=== PATIENT | female | born 1935 | race Caucasian/White ===

== ENCOUNTER 2020-01-20 16:00 | Outpatient (CLI) | payer MEDICARE | END 2020-01-20 16:01 | disposition EMS.NT | LOC: EMS 16:00 | PROVIDERS: ATTEND Surgery | DX: R55 Syncope and collapse (principal) ==

== ENCOUNTER 2023-10-31 12:03 | Outpatient (CLI) | payer MEDICARE | END 2023-10-31 12:04 | disposition critical access hospital (66) | LOC: EMS 12:03 | DX: R53.1 Weakness (principal); R42 Dizziness and giddiness; R11.0 Nausea | CPT/HCPCS: A0425; A0427 ==

== ENCOUNTER 2023-10-31 12:17 | Emergency (ER) | payer MEDICARE ==
[2023-10-31] MEDS ORDERED: fentaNYL 100 MCG/2 ML VIAL IVP PRN (12:39)
[2023-10-31] MEDS: SODIUM CHLORIDE 0.9% 1,000 ML IV STA (12:52)
[2023-10-31] MEDS: ONDANSETRON 4 MG/2 ML VIAL IVP STA (12:53)
[2023-10-31 12:59] LABS: VBG HCO3 24.7 mmol/L (23-28); VBG PCO2 39.5 mmHg (41-51); VBG PH 7.414 (7.31-7.41); VBG PO2 37.1 mmHg (25-47); VBG TOTAL CO2 25.9 mmol/L (24-29)
[2023-10-31 13:00] LABS: VBG BASE EXCESS 0.2 mmol/L (-2 - +2); VBG OXYGEN SATURATION 74.4 % (60-80)
[2023-10-31 13:03] LABS: BASOPHILS % (AUTO) 0.2 %; EOSINOPHILS # (AUTO) 0.1 10^3/uL (0.0-0.7); HCT - HEMATOCRIT 37.9 % (37.0-47.0); HGB - HEMOGLOBIN 12.8 g/dL (12.0-16.0); LYMPHOCYTES # (AUTO) 1.4 10^3/uL (1.5-3.5); MEAN CORPUSCULAR HEMOGLOBIN 30.6 pg (27.0-31.0); MEAN CORPUSCULAR HGB CONC 33.8 g/dL (32.0-36.0); MEAN CORPUSCULAR VOLUME 90.7 fL (81.0-99.0); MEAN PLATELET VOLUME 10.7 fL (7.9-10.8); MONOCYTES # (AUTO) 0.2 10^3/uL (0.0-1.0); MONOCYTES % (AUTO) 3.9 %; NEUTROPHILS # (AUTO) 4.4 10^3/uL (1.5-6.6); NEUTROPHILS % (AUTO) 71.6 %; PLT - PLATELET COUNT 175 10^3/uL (130-450); RED BLOOD COUNT 4.18 10^6/uL (4.20-5.40); RED CELL DISTRIBUTION WIDTH 13.2 % (12.0-15.0); WHITE BLOOD COUNT 6.1 x10^3/uL (4.8-10.8)
[2023-10-31 13:09] LABS: PT - PROTHROMBIN TIME 11.2 secs (9.9-12.6)
[2023-10-31 13:18] LABS: ALBUMIN 4.2 g/dL (3.2-5.5); ALBUMIN/GLOBULIN RATIO 1.6 (1.0-2.2); ALKALINE PHOSPHATASE 56 IU/L (42-121); ALT ALANINE AMINOTRANSFERASE 13 IU/L (10-60); AST ASPARTATE AMINOTRANSFERASE 17 IU/L (10-42); BILIRUBIN,TOTAL 0.5 mg/dL (0.2-1.0); BUN - BLOOD UREA NITROGEN 25 mg/dL (6-20); CALCIUM 9.7 mg/dL (8.5-10.3); CARBON DIOXIDE - CO2 25 mmol/L (21-32); CHLORIDE 101 mmol/L (101-111); CK- CREATINE KINASE 57 IU/L (30-223); CREATININE 0.9 mg/dL (0.6-1.3); ETOH - ETHANOL < 10.0 mg/dL; GFR - MDRD 59 (>89); GLUCOSE 179 mg/dL (74-104); LIPASE 25 U/L (11-82); MAGNESIUM 1.8 mg/dL (1.7-2.3); POTASSIUM 3.7 mmol/L (3.5-4.5); SODIUM 135 mmol/L (135-145); TOTAL PROTEIN 6.8 g/dL (6.4-8.9)
[2023-10-31] MEDS ORDERED: IOVERSOL 320 100 ML VIAL IVP ONE (13:40)
[2023-10-31 13:51] LABS: B. PARAPERTUSSIS- RESP PCR PAN NOT DETECTED; B. PERTUSSIS- RESP PCR PANEL NOT DETECTED; C. PNEUMONIAE- RESP PCR PANEL NOT DETECTED; CORONAVIRUS 229E-RESP PCR NOT DETECTED; CORONAVIRUS HKU1-RESP PCR NOT DETECTED; CORONAVIRUS NL63-RESP PCR NOT DETECTED; CORONAVIRUS OC43-RESP PCR NOT DETECTED; HUMAN METAPNEUMOVIRUS NOT DETECTED; INFLUENZA A- RESP PCR PANEL NOT DETECTED; INFLUENZA B - RESP PCR PANEL NOT DETECTED; M. PNEUMONIAE- RESP PCR PANEL NOT DETECTED; PARAINFLUENZA VIRUS 1 NOT DETECTED; PARAINFLUENZA VIRUS 2 NOT DETECTED; PARAINFLUENZA VIRUS 3 NOT DETECTED; PARAINFLUENZA VIRUS 4 NOT DETECTED; RHINOVIRUS/ENTEROVIRUS NOT DETECTED; RSV- RESP PCR PANEL NOT DETECTED; SARS-CoV-2 -RESP PCR PANEL NOT DETECTED
[2023-10-31 14:40] LABS: BILIRUBIN,URINE NEGATIVE (NEGATIVE); GLUCOSE, URINE (UA) NEGATIVE (NEGATIVE); KETONES,URINE (UA) NEGATIVE (NEGATIVE); LEUKOCYTE ESTERASE, URINE NEGATIVE (NEGATIVE); NITRITE,URINE POSITIVE (NEGATIVE); OCCULT BLOOD,URINE NEGATIVE (NEGATIVE); PROTEIN,URINE NEGATIVE (NEGATIVE); UROBILINOGEN,URINE 0.2 (NORMAL) E.U./dL (NORMAL)
[2023-10-31 14:43] LABS: CLARITY,URINE HAZY (CLEAR)
[2023-10-31 14:51] LABS: AMPHETAMINE SCREEN,URINE NEGATIVE (NEGATIVE); BACTERIA,URINE Moderate /HPF (None Seen); BARBITURATE SCREEN,UR NEGATIVE (NEGATIVE); BENZODIAZEPINES SCREEN, URINE NEGATIVE (NEGATIVE); BUPRENORPHINE SCREEN, URINE NEGATIVE (NEGATIVE); COCAINE SCREEN URINE NEGATIVE (NEGATIVE); METHADONE SCREEN, URINE NEGATIVE (NEGATIVE); METHAMPHETAMINES SCREEN, URINE NEGATIVE (NEGATIVE); OPIATE SCREEN, URINE POSITIVE (NEGATIVE); OXYCODONE SCREEN, URINE NEGATIVE (NEGATIVE); RBC,URINE None Seen /HPF (0-5); SQUAMOUS EPITHELIAL CELL,UR RARE Squamous (<= Few); THC CANNABINOID SCREEN, URINE NEGATIVE (NEGATIVE); TRICYCLIC ANTIDEPRESSANT,URINE NEGATIVE (NEGATIVE)
--- NOTE | 2023-10-31 15:16 | ED Physician Documentation ---
History of Present Illness - Stated complaint Stated Complaint: NVD/WEAKNESS - Chief complaint Chief Complaint: Abd Pain - Additonal information Additional information: Patient 88-year-old female brought in via EMS with nausea, vomiting, generalized weakness. Reports diarrhea with associated nausea vomiting ongoing for the last few days. Denies chest pain or shortness of breath. Reports abdominal pain associated with nausea vomiting. Review of Systems Constitutional: denies: Fever Eyes: denies: Loss of vision Ears: denies: Loss of hearing Nose: denies: Rhinorrhea / runny nose Throat: denies: Dental pain / toothache Cardiac: denies: Chest pain / pressure Respiratory: denies: Dyspnea GI: reports: Abdominal Pain, Nausea, Vomiting, Diarrhea : denies: Dysuria PD PAST MEDICAL HISTORY - Past Medical History Past Medical History: Yes Cardiovascular: Hypertension - Present Medications Home Medications: Ambulatory Orders Medication Instructions Recorded Confirmed Cefdinir 300 mg PO BID #20 cap 10/31/23 Loperamide [Imodium] 2 mg PO ONCE #20 cap 10/31/23 Losartan [Cozaar] 50 mg PO DAILY 10/31/23 10/31/23 Ondansetron Odt [Zofran] 4 mg TL Q6H PRN #10 tablet 10/31/23 - Allergies Allergies/Adverse Reactions: Allergies Allergy/AdvReac Type Severity Reaction Status Date / Time No Known Drug Allergies Allergy Verified 10/31/23 12:32 - Social History Does the pt smoke?: No Smoking Status: Never smoker PD ED PE NORMAL - Vitals Vital signs reviewed: Yes - General General: Alert and oriented X 3 - HEENT HEENT: Atraumatic, PERRL, EOMI, Ears normal, Moist mucous membranes, Pharynx b enign - Neck Neck: Supple, no meningeal sign, No bony TTP, No adenopathy, Thyroid normal - Respiratory Respiratory: No respiratory distress - Abdomen Abdomen: Normal bowel sounds - Female Female : Deferred - Rectal Rectal: Deferred - Back Back: No CVA TTP - Derm Derm: Normal color Results - Vitals Vitals: Vital Signs - 24 hr 10/31/23 10/31/23 10/31/23 12:28 14:32 16:00 Temperature 36.0 C L Heart Rate 60 70 103 H Heart Rate [ Sitting] Heart Rate [ Standing] Heart Rate [ Supine] Respiratory 16 15 18 Rate Blood Pressure 151/109 H 144/74 H 137/81 H Blood Pressure [Sitting] Blood Pressure [Standing] Blood Pressure [Supine] O2 Saturation 96 94 96 10/31/23 16:22 Temperature Heart Rate Heart Rate [ 73 Sitting] Heart Rate [ 73 Standing] Heart Rate [ 64 Supine] Respiratory Rate Blood Pressure Blood Pressure 144/84 H [Sitting] Blood Pressure 145/77 H [Standing] Blood Pressure 147/72 H [Supine] O2 Saturation Oxygen O2 Source Room air - EKG (time done) 1257 EKG releavant findings:: EKG personally interpreted by author of this note. Relevant findings are: Sinus rhythm with rate 59 bpm. Normal axis. Prolonged [place] interval at [address] segment elevations or T wave inversions. - Labs Labs: Laboratory Tests 10/31/23 10/31/23 10/31/23 12:48 12:51 12:51 WBC 6.1 RBC 4.18 L Hgb 12.8 Hct 37.9 MCV 90.7 MCH 30.6 MCHC 33.8 RDW 13.2 Plt Count 175 MPV 10.7 Neut # (Auto) 4.4 Lymph # (Auto) 1.4 L [place] # (Auto) 0.2 Eos # (Auto) 0.1 Baso # (Auto) 0.0 Absolute Nucleated RBC 0.00 Nucleated RBC % 0.0 PT 11.2 INR 1.0 VBG pH VBG pCO2 VBG pO2 VBG HCO3 VBG Total CO2 VBG O2 Saturation VBG Base Excess Sodium Potassium Chloride Carbon Dioxide Anion Gap BUN Creatinine Estimated GFR (MDRD) Glucose Lactic Acid Calcium Magnesium Total Bilirubin AST ALT Alkaline Phosphatase Total Creatine Kinase Total Protein Albumin Globulin Albumin/Globulin Ratio Lipase Urine Color Urine Clarity Urine pH Ur Specific [place] Urine Protein Urine Glucose (UA) Urine Ketones Urine Occult Blood Urine Nitrite Urine Bilirubin Urine Urobilinogen Ur Leukocyte Esterase Urine RBC Urine WBC Ur Squamous Epith Cells Urine Bacteria Ur Microscopic Review Urine Culture Comments Nasal Adenovirus (PCR) NOT DETECTED Nasal B. parapertussis DNA (PCR) NOT DETECTED Nasal Coronavir 229E PCR NOT DETECTED Nasal Coronavir HKU1 PCR NOT DETECTED Nasal Coronavir NL63 PCR NOT DETECTED Nasal Coronavir OC43 PCR NOT DETECTED Nasal Enterovir/Rhinovir PCR NOT DETECTED Nasal Influenza B PCR NOT DETECTED Nasal Influenza A PCR NOT DETECTED Nasal Parainfluen 1 PCR NOT DETECTED Nasal Parainfluen 2 PCR NOT DETECTED Nasal Parainfluen 3 PCR NOT DETECTED Nasal Parainfluen 4 PCR NOT DETECTED Nasal RSV (PCR) NOT DETECTED Nasal B.pertussis DNA PCR NOT DETECTED Nasal C.pneumoniae (PCR) NOT DETECTED Adria Human Metapneumo PCR NOT DETECTED Nasal M.pneumoniae (PCR) NOT DETECTED Nasal SARS-CoV-2 (PCR) NOT DETECTED Urine Opiates Screen Ur Buprenorphine Scrn Ur Oxycodone Screen Urine Methadone Screen Ur Barbiturates Screen Ur Tricyclics Screen Ur Phencyclidine Scrn Ur Amphetamine Screen U Methamphetamines Scrn U Benzodiazepines Scrn Urine Cocaine Screen U Cannabinoids Screen Ur Drug Screen Comment Ethyl Alcohol 10/31/23 10/31/23 10/31/23 12:51 12:51 12:56 WBC RBC Hgb Hct MCV MCH MCHC RDW Plt Count MPV Neut # (Auto) Lymph # (Auto) [place] # (Auto) Eos # (Auto) Baso # (Auto) Absolute Nucleated RBC Nucleated RBC % PT INR VBG pH 7.414 H VBG pCO2 39.5 L VBG pO2 37.1 VBG HCO3 24.7 VBG Total CO2 25.9 VBG O2 Saturation 74.4 VBG Base Excess 0.2 Sodium 135 Potassium 3.7 Chloride 101 Carbon Dioxide 25 Anion Gap 9.0 BUN 25 H Creatinine 0.9 Estimated GFR (MDRD) 59 L Glucose 179 H Lactic Acid 1.7 Calcium 9.7 Magnesium 1.8 Total Bilirubin 0.5 AST 17 ALT 13 Alkaline Phosphatase 56 Total Creatine Kinase 57 Total Protein 6.8 Albumin 4.2 Globulin 2.6 Albumin/Globulin Ratio 1.6 Lipase 25 Urine Color Urine Clarity Urine pH Ur Specific [place] Urine Protein Urine Glucose (UA) Urine Ketones Urine Occult Blood Urine Nitrite Urine Bilirubin Urine Urobilinogen Ur Leukocyte Esterase Urine RBC Urine WBC Ur Squamous Epith Cells Urine Bacteria Ur Microscopic Review Urine Culture Comments Nasal Adenovirus (PCR) Nasal B. parapertussis DNA (PCR) Nasal Coronavir 229E PCR Nasal Coronavir HKU1 PCR Nasal Coronavir NL63 PCR Nasal Coronavir OC43 PCR Nasal Enterovir/Rhinovir PCR Nasal Influenza B PCR Nasal Influenza A PCR Nasal Parainfluen 1 PCR Nasal Parainfluen 2 PCR Nasal Parainfluen 3 PCR Nasal Parainfluen 4 PCR Nasal RSV (PCR) Nasal B.pertussis DNA PCR Nasal C.pneumoniae (PCR) Adria Human Metapneumo PCR Nasal M.pneumoniae (PCR) Nasal SARS-CoV-2 (PCR) Urine Opiates Screen Ur Buprenorphine Scrn Ur Oxycodone Screen Urine Methadone Screen Ur Barbiturates Screen Ur Tricyclics Screen Ur Phencyclidine Scrn Ur Amphetamine Screen U Methamphetamines Scrn U Benzodiazepines Scrn Urine Cocaine Screen U Cannabinoids Screen Ur Drug Screen Comment Ethyl Alcohol < 10.0 10/31/23 14:24 WBC RBC Hgb Hct MCV MCH MCHC RDW Plt Count MPV Neut # (Auto) Lymph # (Auto) [place] # (Auto) Eos # (Auto) Baso # (Auto) Absolute Nucleated RBC Nucleated RBC % PT INR VBG pH VBG pCO2 VBG pO2 VBG HCO3 VBG Total CO2 VBG O2 Saturation VBG Base Excess Sodium Potassium Chloride Carbon Dioxide Anion Gap BUN Creatinine Estimated GFR (MDRD) Glucose Lactic Acid Calcium Magnesium Total Bilirubin AST ALT Alkaline Phosphatase Total Creatine Kinase Total Protein Albumin Globulin Albumin/Globulin Ratio Lipase Urine Color YELLOW Urine Clarity HAZY Urine pH 7.0 Ur Specific [place] 1.015 Urine Protein NEGATIVE Urine Glucose (UA) NEGATIVE Urine Ketones NEGATIVE Urine Occult Blood NEGATIVE Urine Nitrite POSITIVE H Urine Bilirubin NEGATIVE Urine Urobilinogen 0.2 (NORMAL) Ur Leukocyte Esterase NEGATIVE Urine RBC None Seen Urine WBC 6-10 H Ur Squamous Epith Cells RARE Squamous Urine Bacteria Moderate H Ur Microscopic Review INDICATED Urine Culture Comments INDICATED Nasal Adenovirus (PCR) Nasal B. parapertussis DNA (PCR) Nasal Coronavir 229E PCR Nasal Coronavir HKU1 PCR Nasal Coronavir NL63 PCR Nasal Coronavir OC43 PCR Nasal Enterovir/Rhinovir PCR Nasal Influenza B PCR Nasal Influenza A PCR Nasal Parainfluen 1 PCR Nasal Parainfluen 2 PCR Nasal Parainfluen 3 PCR Nasal Parainfluen 4 PCR Nasal RSV (PCR) Nasal B.pertussis DNA PCR Nasal C.pneumoniae (PCR) Adria Human Metapneumo PCR Nasal M.pneumoniae (PCR) Nasal SARS-CoV-2 (PCR) Urine Opiates Screen POSITIVE H Ur Buprenorphine Scrn NEGATIVE Ur Oxycodone Screen NEGATIVE Urine Methadone Screen NEGATIVE Ur Barbiturates Screen NEGATIVE Ur Tricyclics Screen NEGATIVE Ur Phencyclidine Scrn NEGATIVE Ur Amphetamine Screen NEGATIVE U Methamphetamines Scrn NEGATIVE U Benzodiazepines Scrn NEGATIVE Urine Cocaine Screen NEGATIVE U Cannabinoids Screen NEGATIVE Ur Drug Screen Comment CUTOFF CONC BELOW: Ethyl Alcohol PD Medical Decision Making - ED course Complexity details: reviewed results, re-evaluated patient, considered differential, d/w patient, d/w family ED course: Patient 88-year-old female presenting the emergency department with nausea, vomiting, generalized weakness. Afebrile, hemodynamic stable arrival to the emergency department. Shortly after arrival to the emergency department patient did have a brief episode of hypoxia that in retrospect was likely secondary to a episode of sleep apnea. She was placed on supplemental oxygen initially on arrival. Her labs were all generally reassuring with no indications septic infection, severe electrolyte abnormality, hepatic or renal dysfunction. Her urine analysis does have indica tions for infection and her urine culture is pending. She was given dose Rocephin here in the emergency department. Additionally she was given IV hydration. I obtained CT scans of her chest, abdomen and pelvis which showed a hiatal hernia as well as a 1 cm x 0.8 cm right sided pulmonary nodule which the patient is aware and and with whom she is following with primary care. She was monitored in the emergency department for several hours with steady improvement in her symptoms. She is tolerating p.o. in the emergency department. Orthostatic vital signs negative. She ambulated in the department without difficulty. At this time I will discharge with medication for symptomatic management including any course of Omnicef, Zofran, Imodium. Will encourage careful follow-up with primary care. Clear return precautions given. Departure - Departure Clinical Impression: Lower urinary tract infection, Hiatal hernia, Pulmonary nodule Nausea and vomiting Qualifiers: Vomiting type: unspecified Qualified Code(s): R11.2 - Nausea with vomiting, unspecified Diarrhea Qualifiers: Diarrhea type: unspecified type Qualified Code(s): R19.7 - Diarrhea, unspecified Instructions: ED UTI Cystitis Female, ED Diet Vomiting Diarrhea, Diet Clear Liquid Dc Prescriptions: Cefdinir 300 mg PO BID #20 cap Loperamide [Imodium] 2 mg PO ONCE #20 cap Ondansetron Odt [Zofran] 4 mg TL Q6H PRN #10 tablet PRN Reason: Nausea / Vomiting Comments: Thank you [facility] allowing [facility]. Today in the emergency department you were diagnosed with urinary tract infection.I have written a prescription for some antibiotic as well as medication you can take for nausea and diarrhea. It is important that you stay well-hydrated over the course the next few days. Please drink plenty of fluids. Please follow-up with your primary care doctor. If it anytime you have new or worsening symptoms please return. Forms: PCP List
[2023-10-31] MEDS: cefTRIAXone 1 GM VIAL IVP STA (15:40)
--- NOTE | 2023-10-31 15:51 | CT Report ---
PROCEDURE: Abdomen/Pelvis W INDICATIONS: abd pain, n/v/d CONTRAST: Opti 320- 100ml TECHNIQUE: After the administration of intravenous contrast, a CT scan of the abdomen and pelvis was performed. Images were recorded and evaluated at appropriate window settings. Reformats: coronal and sagittal. F or radiation dose reduction, the following was used: automated exposure control, adjustment of mA and /or kV according to patient size. COMPARISON: None. FINDINGS: Image quality: Diagnostic. Lower chest: Please see dedicated chest CT. Liver: No solid mass. Gallbladder and biliary tree: No radiopaque stones or wall thickening. No biliary dilation. Spleen: No splenomegaly. Pancreas: No pancreatic ductal dilation. Adrenals: No adrenal nodule. Kidneys and ureters: No hydronephrosis. No renal cystic lesion which requires follow up. No solid mas s. Stomach, bowel and peritoneum: No bowel distension. No pathologic free fluid. Normal appendix. Lymph nodes: No central or retroperitoneal adenopathy. Vessels: No infrarenal aortic aneurysm. PELVIS Reproductive organs: Unremarkable. Bladder: No abnormal wall thickening, accounting for underdistention. Pelvic lymph nodes: No pelvic adenopathy by size criteria. Bones: No aggressive osseous abnormality. Other: Small amount of fat within the left canal of [place]. IMPRESSION: No acute abnormality. No evidence of bowel obstruction. Normal appendix. Please see dedicated chest CT for further discussion. Reviewed by: Jason Mcleod MD on 10/31/2023 3:50 PM PST Approved by: Jason Mcleod MD on 10/31/2023 3:50 PM PST Station ID: [id number]
--- NOTE | 2023-10-31 15:57 | CT Report ---
PROCEDURE: Angio Chest INDICATIONS: hypoxic resp failure CONTRAST: Opti 320- 100ml TECHNIQUE: After the administration of intravenous contrast, 2 mm axial images were acquired from the pulmonary apices to the posterior costophrenic angles during the arterial phase. In addition, 1 mm lung kernel and 5 mm soft tissue kernel reconstructions were performed. 3-dimensional coronal oblique maximum int ensity projection (MIP) reformats, 8 mm axial MIP, and 5 mm coronal and sagittal MPR reformats were t hen performed through the thorax. For radiation dose reduction, the following was used: automated exp osure control, adjustment of mA and/or kV according to patient size. COMPARISON: None. FINDINGS: Image quality: Excellent. Large vessels: No filling defects within the opacified pulmonary arteries, accounting for motion and contrast timing. No evidence of acute aortic syndrome or aortic aneurysm. Lungs and pleura: No consolidation. No pleural effusions. No pneumothorax. 10 x 7 mm solid nodule in the right upper lobe (series 7, image 37). Mediastinum: Heart size is enlarged. No pericardial effusion. No large vessel abnormality. No mediast inal adenopathy by size criteria. Moderate hiatal hernia and wall thickening of the lower esophagus. Chest wall and lower neck: Thyroid is unremarkable. No axillary or supraclavicular adenopathy by size . Bones: No aggressive osseous abnormality. Upper Abdomen: Unremarkable. IMPRESSION: No pulmonary embolus. Moderate hiatal hernia with wall thickening of the lower esophagus, suggestive of esophagitis. 45 10 x 7 mm nodule in the right upper lobe. Recommend follow-up in 3 months. Reviewed by: Jason Mcleod MD on 10/31/2023 3:55 PM PST Approved by: Jason Mcleod MD on 10/31/2023 3:55 PM PST Station ID: [id number]
--- NOTE | 2023-10-31 16:28 | CT Report ---
PROCEDURE: CT brain without contrast INDICATIONS: Dizziness TECHNIQUE: Helical axial CT of the brain was obtained without contrast and reformatted in multiple p lanes. Radiation dose reduction was achieved using automated exposure control or adjustment of mA and /or kV according to patient size. COMPARISON: None FINDINGS: CSF spaces: Ventricles are appropriate in size and position. No hydrocephalus. Basal cisterns unre markable. Brain: No midline shift. No intracranial masses or hemorrhage. [place]-white matter interface is norm al. Moderate atrophy and multifocal white matter chronic ischemic change noted. Atherosclerotic vasc ular calcification noted in the cavernous segments of both internal carotid arteries. Skull and face: Calvarium and skull base are unremarkable without suspicious lesion. Bilateral intr aocular lens replacements noted. Sinuses: Visualized sinuses and mastoids are clear. IMPRESSION: Atrophy and multifocal white matter chronic ischemic change without intracranial hemorrhage or mass e ffect. Reviewed by: Sage Varela MD on 10/31/2023 3:26 PM AKST Approved by: Sage Varela MD on 10/31/2023 3:26 PM AKST Station ID: [id number]
[2023-10-31 17:37] VITALS: BP 134/67; O2SAT 95
[2023-10-31] MEDS: IOVERSOL 320 100 ML VIAL IVP ONE (18:01)
== END 2023-10-31 17:37 | disposition home or self-care (01) ==
LOC: EDUNIT# → ED 12:17
DX: N39.0 Urinary tract infection, site not specified (principal); K44.9 Diaphragmatic hernia without obstruction or gangrene; R91.1 Solitary pulmonary nodule
CPT/HCPCS: 36415; 70450; 71275; 74177; 80053; 80306; 81001; 82550; 82803; 83605; 83690; 83735; 85025; 85610; 87040; 87086; 87181; 87633; 93005; 96361; 96374; 96375; 99284; G0480; Q9967; 81003; 82077

== ENCOUNTER 2023-11-08 08:00 | Outpatient (CLI) | payer MEDICARE | END 2023-11-08 08:01 | disposition home or self-care (01) | LOC: LAB.N 08:00 | PROVIDERS: ATTEND Specialist | DX: R05.8 Other specified cough (principal) ==

== ENCOUNTER 2024-03-22 14:31 | Emergency (ER) | payer MEDICARE ==
--- NOTE | 2024-03-22 14:54 | ED Physician Documentation ---
History of Present Illness - Stated complaint Stated Complaint: PASSING OUT, N/V - Chief complaint Chief Complaint: Abd Pain - Additonal information Additional information: Patient is an 88-year-old female presenting to the emergency department past medical history of hypertension otherwise healthy 88-year-old presents after difficulty urinating yesterday morning. Patient notes symptoms have been persistent this morning as well where she had difficulty urinating she notes that it was painful and she had dysuria but no blood in her urine. She denies any abdominal pain or back pain associated with her symptoms. She has a history of a UTI a few months ago was started on cefdinir at that time and admitted to the hospital. PD PAST MEDICAL HISTORY - Past Medical History Past Medical History: Yes Cardiovascular: Hypertension, High cholesterol - Past Surgical History Past Surgical History: No - Present Medications Home Medications: Ambulatory Orders Medication Instructions Recorded Confirmed atenoloL [Tenormin] 1 tab PO DAILY 03/22/24 03/22/24 cephALEXin [Keflex] 500 mg PO BID 5 Days #10 cap 03/22/24 - Allergies Allergies/Adverse Reactions: Allergies Allergy/AdvReac Type Severity Reaction Status Date / Time No Known Drug Allergies Allergy Verified 03/22/24 14:39 - Social History Does the pt smoke?: No Smoking Status: Never smoker Does the pt drink ETOH?: No Does the pt have substance abuse?: No - Immunizations Immunizations are current?: No - POLST Patient has POLST: No PD ED PE NORMAL - Vitals Vital signs reviewed: Yes - General General: Alert and oriented X 3 - HEENT HEENT: Atraumatic - Neck Neck: Supple, no meningeal sign - Cardiac Cardiac: RRR, No murmur, No gallop - Respiratory Respiratory: No respiratory distress, Clear bilaterally - Back Back: No CVA TTP - Derm Derm: Normal color Results - Vitals Vitals: Vital Signs - 24 hr 03/22/24 03/22/24 14:39 17:16 Temperature 36.8 C Heart Rate 66 67 Respiratory 16 14 Rate Blood Pressure 160/80 H 162/80 H O2 Saturation 100 97 Oxygen O2 Source Room air - Labs Labs: Laboratory Tests 03/22/24 03/22/24 03/22/24 14:48 15:20 15:20 WBC 8.4 RBC 4.08 L Hgb 12.2 Hct 37.0 MCV 90.7 MCH 29.9 MCHC 33.0 RDW 13.4 Plt Count 168 MPV 10.2 Neut # (Auto) 6.6 Lymph # (Auto) 1.3 L Story # (Auto) 0.3 Eos # (Auto) 0.1 Baso # (Auto) 0.0 Absolute Nucleated RBC 0.00 Nucleated RBC % 0.0 Sodium 136 Potassium 4.3 Chloride 103 Carbon Dioxide 28 Anion Gap 5.0 L BUN 19 Creatinine 0.9 Estimated GFR (MDRD) 59 L Glucose 113 H Calcium 9.9 Magnesium 1.9 Total Bilirubin 0.6 AST 19 ALT 13 Alkaline Phosphatase 70 Total Protein 7.1 Albumin 4.4 Globulin 2.7 Albumin/Globulin Ratio 1.6 Lipase 47 Urine Color YELLOW Urine Clarity HAZY Urine pH 6.5 Ur Specific [place] 1.015 Urine Protein NEGATIVE Urine Glucose (UA) NEGATIVE Urine Ketones NEGATIVE Urine Occult Blood MODERATE H Urine Nitrite NEGATIVE Urine Bilirubin NEGATIVE Urine Urobilinogen 0.2 (NORMAL) Ur Leukocyte Esterase MODERATE H Urine RBC 6-10 H Urine WBC >25 H Ur Squamous Epith Cells NONE SEEN Urine Bacteria Few Ur Microscopic Review INDICATED Urine Culture Comments INDICATED PD Medical Decision Making - ED course ED course: Patient is an 88-year-old female presenting to the emergency department with urinary symptoms of dysuria she notes symptoms started yesterday morning resolv ed in the afternoon and started again this morning. She felt very lightheaded with the symptoms she notes she had similar episode few months ago was diagnosed with UTI and discharged on cefdinir. Patient notes she has been asymptomatic since then. She denies any low back pain no fevers no abdominal pain. Vitals are reassuring on arrival she is afebrile nontachycardic. Physical exam shows no CVA tenderness normal cardiac lung sounds normal abdominal tenderness rebound guarding. Labs obtained here in the emergency department are reassuring no significant NILO no significant leukocytosis urine analysis does show white blood cells in the urine concerning for UTI will start patient on antibiotics for Keflex first dose given here in the emergency department. Patient was given prescription for this she was agreeable with this plan. She was given strict return precautions including fevers low back pain nausea vomiting or abdominal pain. Patient understands and is agreeable with this pl an. Departure - Departure Disposition: 01 Home, Self Care Clinical Impression: Urinary tract infection Condition: Good Instructions: ED UTI Cystitis Female Prescriptions: cephALEXin [Keflex] 500 mg PO BID 5 Days #10 cap Comments: Your workup here in the emergency department did show findings of a UTI and started you on antibiotics please follow-up with your PCP in the outpatient setting if develop any difficulty urinating back pain fevers return to emergency department. Forms: PCP List Discharge Date/Time: 03/22/24 17:16
[2024-03-22 15:26] LABS: BASOPHILS % (AUTO) 0.2 %; EOSINOPHILS # (AUTO) 0.1 10^3/uL (0.0-0.7); EOSINOPHILS % (AUTO) 0.8 %; HGB - HEMOGLOBIN 12.2 g/dL (12.0-16.0); LYMPHOCYTES # (AUTO) 1.3 10^3/uL (1.5-3.5); MEAN CORPUSCULAR HEMOGLOBIN 29.9 pg (27.0-31.0); MEAN CORPUSCULAR VOLUME 90.7 fL (81.0-99.0); MEAN PLATELET VOLUME 10.2 fL (7.9-10.8); MONOCYTES # (AUTO) 0.3 10^3/uL (0.0-1.0); MONOCYTES % (AUTO) 4.1 %; NEUTROPHILS # (AUTO) 6.6 10^3/uL (1.5-6.6); NEUTROPHILS % (AUTO) 78.5 %; PLT - PLATELET COUNT 168 10^3/uL (130-450); RED BLOOD COUNT 4.08 10^6/uL (4.20-5.40); RED CELL DISTRIBUTION WIDTH 13.4 % (12.0-15.0); WHITE BLOOD COUNT 8.4 x10^3/uL (4.8-10.8)
[2024-03-22 15:32] LABS: BILIRUBIN,URINE NEGATIVE (NEGATIVE); GLUCOSE, URINE (UA) NEGATIVE (NEGATIVE); KETONES,URINE (UA) NEGATIVE (NEGATIVE); LEUKOCYTE ESTERASE, URINE MODERATE (NEGATIVE); NITRITE,URINE NEGATIVE (NEGATIVE); OCCULT BLOOD,URINE MODERATE (NEGATIVE); PH,URINE 6.5 PH (5.0-7.5); PROTEIN,URINE NEGATIVE (NEGATIVE); UROBILINOGEN,URINE 0.2 (NORMAL) E.U./dL (NORMAL)
[2024-03-22 15:33] LABS: CLARITY,URINE HAZY (CLEAR)
[2024-03-22 15:40] LABS: ALBUMIN 4.4 g/dL (3.2-5.5); ALBUMIN/GLOBULIN RATIO 1.6 (1.0-2.2); BILIRUBIN,TOTAL 0.6 mg/dL (0.2-1.0); CALCIUM 9.9 mg/dL (8.5-10.3); CREATININE 0.9 mg/dL (0.6-1.3); MAGNESIUM 1.9 mg/dL (1.7-2.3); POTASSIUM 4.3 mmol/L (3.5-4.5); TOTAL PROTEIN 7.1 g/dL (6.4-8.9)
[2024-03-22 15:40] LABS: BACTERIA,URINE Few /HPF (None Seen); SQUAMOUS EPITHELIAL CELL,UR NONE SEEN (<= Few); WBC,URINE >25 /HPF (0-5)
[2024-03-22] MEDS: cephALEXin 250 MG CAPSULE PO STA (17:09)
[2024-03-22 17:23] VITALS: BP 162/80; O2SAT 97
== END 2024-03-22 17:16 | disposition home or self-care (01) ==
LOC: ED 14:31
DX: N39.0 Urinary tract infection, site not specified (principal); I10 Essential (primary) hypertension; E78.00 Pure hypercholesterolemia, unspecified; Z79.899 Other long term (current) drug therapy
CPT/HCPCS: 36415; 80053; 81001; 83690; 83735; 85025; 87086; 87181; 99283; 99284; A9270; 81003